=== PATIENT | female | born 1935 | race Caucasian/White ===

== ENCOUNTER 2024-09-22 02:08 | Emergency (ER) | payer MEDICARE, MEDICAID ==
[~2024-09-22] VITALS: Ht 152.4 cm; Wt 47.0 kg
[~2024-09-22 02:08] MED LIST: BISACODYL; ESOMEPRAZOLE; HCTZ; LOTENSIN; NEURONTIN; NEXIUM
[2024-09-22 02:10] VITALS: O2SAT 98
[2024-09-22 04:10] VITALS: BP 125/54; PULSE 69; RESP 18; TEMP 36.7; O2SAT 99
== END 2024-09-22 04:30 | disposition home or self-care (01) ==
LOC: ER 02:08
DX: S01.01XA Laceration without foreign body of scalp, initial encounter (principal); E11.9 Type 2 diabetes mellitus without complications; I10 Essential (primary) hypertension; R51.9 Headache, unspecified; Z79.899 Other long term (current) drug therapy; W06.XXXA Fall from bed, initial encounter; Y93.89 Activity, other specified; Y92.89 Other specified places as the place of occurrence of the external cause; Y99.8 Other external cause status
CPT/HCPCS: 12001; 99284